=== PATIENT | female | born 1975 | race Caucasian/White ===

== ENCOUNTER 2020-12-07 01:41 | Inpatient (IN) ==
[2020-12-07 01:52] VITALS: BMI 39.6
--- NOTE | 2020-12-07 02:09 | DR.EXTPAIN ---
HPI Time seen Time Seen by Provider: 12/07/20 01:55 PCP Primary Care Physician: YAMILKA MARTÍNEZ Complaint/Symptoms Chief Complaint:: PT HAS LARGE CUT TO BOTTOM OF THIRD LEFT TOE. TOE IS BLUE/PURPLE IN COLOR. PT STATES THAT HER TOE WAS NOT LIKE THIS EARLIER AND THAT SHE NOTICED IT WHENEVER SHE WENT TO TAKE A SHOWER AT AROUND 0115. PT STATES SHE HAS NEUROPATHY IN HER TOES. Source History Provided: Patient Mode of arrival Mode of Arrival: Ambulatory Timing Onset of Chief Complaint: 12/07/20 PMH PMH Past Medical History: Yes Past Medical History: Anxiety, Arthritis, CHF, COPD, Coronary Artery Disease, Diabetes, Migraines, GERD, Headaches, Hypertension, Kidney Stones, [place] and Sleep Apnea Past Medical History Comment: NEUROPATHY Past Surgical History: Yes Surgical History: Appendectomy, , CABG/Valve Surgery and Cholecyste ctomy Past Surgical History Comment: CABG X2 Family History History of Family Medical Conditions: Yes Family Medical History: Diabetes Mellitus and Hypertension Social History Does patient currently use any type of tobacco product: Yes Have you used tobacco products in the last 12 months: Yes Type of Tobacco Use: Cigarettes How many years tobacco product used: 30 Does any household member use tobacco: Yes Alcohol Use: None Do you use any recreational Drugs:: No Lives With: Family Lives Where: Home Infectious screening Have you traveled outside the country in the last 6 months?: No Isolation: Standard ROS Review of Systems Constitutional: No Symptoms Reported and See HPI Eyes: No Symptoms Reported and See HPI ENTM: No Symptoms Reported and See HPI Respiratoy: No Symptoms Reported and See HPI Cardiovascular: No Symptoms Reported and See HPI Gastrointestinal/Abdominal: No Symptoms Reported and See HPI Genitourinary: No Symptoms Reported and See HPI Neurological: No Symptoms Reported and See HPI Musculoskeletal: No Symptoms Reported and See HPI Integumentary: No Symptoms Reported and See HPI Hematologic/Lymphatic: No Symptoms Reported and See HPI Endocrine: No Symptoms Reported and See HPI Psychiatric: No Symptoms Reported and See HPI All Other Systems: Reviewed and Negative PE Vital Signs Vitals: Temperature 98.0 F Pulse Rate [Brachial] 89 Pulse Rate 117 Respiratory Rate 18 Blood Pressure [Left Arm] 151/72 Blood Pressure 190/94 O2 Sat by Pulse Oximetry 98 General Limitations: No Limitations General Appearance: Alert and In No Apparent Distress Head Head Exam: Normal Inspection Eyes Eye exam: Normal Appearance ENT ENT Exam: Normal Exam Neck Neck Exam: Normal Inspection Chest Chest Inspection: Normal Inspection Respiratory Respiratory Exam: Normal Lung Sounds Bilat Cardiovascular Cardiovascular Exam: Regular Rate and Normal Rhythm Abdominal Exam Abdominal Exam: Normal Inspection, Normal Bowel Sounds and Soft Extremities Extremities Exam: Normal Inspection Back Back Exam: Normal Inspection Neurological Neurological Exam: Alert, Oriented X3 and CN II-XII Intact Psychiatric Psychiatric Exam: Normal Affect and Normal Mood Skin Skin Exam: Warm, Dry, Intact and Normal Color ROR Labs Reviewed Result Diagrams: 12/07/20 02:19 12/07/20 02:19 Laboratory: WBC 11.1 X10^3/uL (3.6-10.0) H 12/07/20 02:19 RBC 5.01 X10^6/uL (3.5-5.4) 12/07/20 02:19 Hgb 15.5 g/dL (12.0-16.0) 12/07/20 02:19 Hct 44.0 % (36.0-47.0) 12/07/20 02:19 MCV 87.9 fL (80.0-100.0) 12/07/20 02:19 MCH 30.9 pg (27.0-34.0) 12/07/20 02:19 MCHC 35.2 g/dL (33.0-35.0) H 12/07/20 02:19 RDW 14.3 % (11.6-16.5) 12/07/20 02:19 Plt Count 239 X10^3/uL (150.0-450.0) 12/07/20 02:19 MPV 7.5 fL (7.4-11.0) 12/07/20 02:19 Neut % (Auto) 72.7 % (42.0-75.0) 12/07/20 02:19 Lymph % (Auto) 18.4 % (21.0-51.0) L 12/07/20 02:19 [place] % (Auto) 6.9 % (0.0-13.0) 12/07/20 02:19 Eos % (Auto) 1.1 % (0.9-2.9) 12/07/20 02:19 Baso % (Auto) 0.9 % (0.2-1.0) 12/07/20 02:19 Neut # (Auto) 8.1 x10^3/uL (2.2-4.8) H 12/07/20 02:19 Lymph # (Auto) 2.0 X10^3/uL (1.3-2.9) 12/07/20 02:19 [place] # (Auto) 0.8 x10^3/uL (0.3-0.8) 12/07/20 02:19 Eos # (Auto) 0.1 x10^3/uL (0.0-0.2) 12/07/20 02:19 Baso # (Auto) 0.1 X10^3/uL (0.0-0.1) 12/07/20 02:19 Absolute Nucleated RBC 0.1 /100WBC 12/07/20 02:19 Sodium 137 mmol/L (136-145) 12/07/20 02:19 Corrected Sodium 146 mmol/L (136-145) H 12/07/20 02:19 Potassium 3.5 mmol/L (3.5-5.1) 12/07/20 02:19 Chloride 99 mmol/L (98-107) 12/07/20 02:19 Carbon Dioxide 24.6 mmol/L (21-32) 12/07/20 02:19 BUN 10 mg/dL (7-18) 12/07/20 02:19 Creatinine 0.92 mg/dL (0.55-1.02) 12/07/20 02:19 Est GFR (MDRD) Af Amer > 60 (>60) 12/07/20 02:19 Est GFR (MDRD) Non-Af > 60 (>60) 12/07/20 02:19 Glucose 456 mg/dL (65-99) H 12/07/20 02:19 Calcium 9.1 mg/dL (8.5-10.1) 12/07/20 02:19 Corrected Calcium 9.7 mg/dL (8.5-10.1) 12/07/20 02:19 Total Bilirubin 1.10 mg/dL (0.2-1.0) H 12/07/20 02:19 AST 14 Units/L (15-37) L 12/07/20 02:19 ALT 13 Units/L (12-78) 12/07/20 02:19 Alkaline Phosphatase 174 Units/L (46-116) H 12/07/20 02:19 Total Protein 7.4 g/dL (6.4-8.2) 12/07/20 02:19 Albumin 3.3 g/dL (3.4-5.0) L 12/07/20 02:19 Globulin 4.1 g/dL (2.5-4.5) 12/07/20 02:19 Albumin/Globulin Ratio 0.8 Ratio (1.1-2.1) L 12/07/20 02:19 Acetone, Semi-Quant Negative (NEGATIVE) 12/07/20 02:19 Opioid Opioid Risk Tool Total: 0 Total Score Risk Category: Low Risk Copyright: Garland MONAE predicting aberrant behaviors Instructions Forms: Precautions for COVID19 Patient Portal Social Distancing
[2020-12-07 02:38] LABS: BASOPHILS # (AUTO) 0.1 X10^3/uL (0.0-0.1); BASOPHILS % (AUTO) 0.9 % (0.2-1.0); EOSINOPHILS # (AUTO) 0.1 x10^3/uL (0.0-0.2); EOSINOPHILS % (AUTO) 1.1 % (0.9-2.9); HEMOGLOBIN 15.5 g/dL (12.0-16.0); LYMPHOCYTES % (AUTO) 18.4 % (21.0-51.0); MEAN CORPUSCULAR HEMOGLOBIN 30.9 pg (27.0-34.0); MEAN CORPUSCULAR HGB CONC 35.2 g/dL (33.0-35.0); MEAN CORPUSCULAR VOLUME 87.9 fL (80.0-100.0); MEAN PLATELET VOLUME 7.5 fL (7.4-11.0); MONOCYTES # (AUTO) 0.8 x10^3/uL (0.3-0.8); MONOCYTES % (AUTO) 6.9 % (0.0-13.0); NEUTROPHILS # (AUTO) 8.1 x10^3/uL (2.2-4.8); NEUTROPHILS % (AUTO) 72.7 % (42.0-75.0); PLATELET COUNT 239 X10^3/uL (150.0-450.0); RED BLOOD COUNT 5.01 X10^6/uL (3.5-5.4); RED CELL DISTRIBUTION WIDTH 14.3 % (11.6-16.5); WHITE BLOOD COUNT 11.1 X10^3/uL (3.6-10.0)
[2020-12-07 02:47] LABS: ALANINE AMINOTRANSFERASE 13 Units/L (12-78); ALBUMIN 3.3 g/dL (3.4-5.0); ALKALINE PHOSPHATASE 174 Units/L (46-116); ASPARTATE AMINO TRANSFERASE 14 Units/L (15-37); BLOOD UREA NITROGEN 10 mg/dL (7-18); CALCIUM 9.1 mg/dL (8.5-10.1); CARBON DIOXIDE 24.6 mmol/L (21-32); CHLORIDE 99 mmol/L (98-107); COR CA(FOR HYPOALB) 9.7 mg/dL (8.5-10.1); COR NA(FOR HYPERGLY) 146 mmol/L (136-145); CREATININE 0.92 mg/dL (0.55-1.02); SODIUM 137 mmol/L (136-145); TOTAL PROTEIN 7.4 g/dL (6.4-8.2); eGFR NON BLACK RACES > 60 (>60)
[2020-12-07] MEDS ORDERED: NS 1000 ML 1,000 ML ONE ×2 (02:59→06:16)
[2020-12-07] MEDS ORDERED: NS 1000 ML 1,000 ML IV ONE ×2 (03:11→06:12)
[2020-12-07] MEDS ORDERED: VANCOMYCIN IV *PREMIX 1 G/200 ML BAG 1 G/200 ML PIGGYBACK IV ONE ×2 (06:12→06:16)
[2020-12-07] MEDS ORDERED: HumuLIN R SUBCUT ONE (06:13)
[2020-12-07] MEDS ORDERED: HumuLIN R ONE (06:17)
--- NOTE | 2020-12-07 06:26 | RAD ---
HISTORYLaceration 3rd digitSTUDYLeft foot three viewsCOMPARISONNoneFINDINGSThere is no evidence for acute bone or acute joint abnormality. No fracture, lytic, or blastic lesion is identified. No erosive arthritis or soft tissue abnormalities identified. No radiopaque soft tissue foreign bodies are identified. The tarsal bones are intact and normally aligned. The Lisfranc joint is intact. The 3rd digit is intact.IMPRESSIONNo significant abnormality identifiedElectronically signed by: ELIANE CALI (Dec 07, 2020 06:25:20)
[2020-12-07] MEDS ORDERED: PHARMACY CONSULT - VANCOMYCIN XX SCH (07:00)
[2020-12-07] MEDS ORDERED: ZOFRAN TAB 4 MG PO PRN (07:23)
[2020-12-07] MEDS ORDERED: D5 LR 1000 ML 1,000 ML IV SCH (07:23)
[2020-12-07] MEDS ORDERED: VANCOMYCIN IV *PREMIX 1 G/200 ML BAG 1 G/200 ML PIGGYBACK IV SCH ×2 (08:00→21:00)
[2020-12-07] MEDS: VANCOMYCIN IV *PREMIX 1.25 G/250 ML BAG 1.25 G/250 ML PIGGYBACK IV SCH ×2 (08:20→21:04)
[2020-12-07] MEDS: MORPHINE SULFATE INJ 4 MG IVP PRN ×3 (08:32→21:29)
[2020-12-07] MEDS: NS 1000 ML 1,000 ML IV SCH ×3 (10:22→18:38)
[2020-12-07] MEDS: ZOSYN VIAL 3.375 GRAMS 3.375 G in NS 100 ML IV + SPIKE MINIBAG* 100 ML IV SCH ×3 (10:36→21:05)
[2020-12-07] MEDS: INVOKANA PO SCH (10:36)
[2020-12-07] MEDS: COZAAR PO SCH (10:37)
[2020-12-07] MEDS: COREG TAB 12.5 MG PO SCH ×2 (10:37→21:03)
[2020-12-07] MEDS: GLUCOPHAGE XR 24-HR PO SCH ×2 (10:38→21:04)
[2020-12-07] MEDS: VICTOZA SC SCH (11:22)
[2020-12-07] MEDS: HumuLIN R SC PRN ×2 (11:37→17:28)
--- NOTE | 2020-12-07 14:09 | DR.CONSULT ---
CONSULT Consultation for Day of: Date: 12/07/20 Chief Complaint Chief Complaint: 3rd toe infection left foot Allergies Allergies Allergy/AdvReac Type Severity Reaction Status Date / Time atorvastatin [From Lipitor] Allergy Verified 04/26/20 03:14 meloxicam [From Mobic] Allergy Verified 04/26/20 03:14 History of Present Illness History of Present Illness: Pt is a 45F DM2 who reports worsening left 3rd digit. states that she didnt notice any changes until 2 days ago. Denies n/v/f/c/sob and NAD and AAO x 3. She hasn't taken any abx or sought treat ment for this issue anywhere else. She also states that she has never had any type of foot issues, nor has she ever been seen by a slag motor operator. Past Medical History Past Medical History: Anxiety, Arthritis, CHF, COPD, Coronary Artery Disease, Diabetes, Migraines, GERD, Headaches, Hypertension, Kidney Stones, [place] and Sleep Apnea Past Surgical History Surgical History: , CABG/Valve Surgery, Cholecystectomy and Ortho Surgery Family History Family Medical History: Diabetes Mellitus and Hypertension Social History Does patient currently use any type of tobacco product: Yes Have you used tobacco products in the last 12 months: Yes Type of Tobacco Use: Cigarettes How many years tobacco product used: 30 Does any household member use tobacco: Yes Alcohol Use: None Drug Use: None Medications Home Medications: atorvastatin [From Lipitor] Allergy (Verified 04/26/20 03:14) meloxicam [From Mobic] Allergy (Verified 04/26/20 03:14) CONTINUE taking the following medications carvedilol 6.25 mg PO BID 12/07/20 [History] cyclobenzaprine 10 mg PO TID PRN 12/07/20 [History] escitalopram oxalate 20 mg PO DAILY 12/07/20 [History] folic acid 1 mg PO DAILY 12/07/20 [History] furosemide [Lasix] 20 mg PO QAM 12/07/20 [History] gabapentin 600 mg PO BID 12/07/20 [History] ivermectin 18 mg PO WEEKLY 12/07/20 [History] lisinopril 5 mg PO DAILY 12/07/20 [History] loratadine 10 mg PO HS 12/07/20 [History] metformin 1,000 mg PO BID 12/07/20 [History] rosuvastatin 20 mg PO HS 12/07/20 [History] Review of Systems Constitutional: No Symptoms Reported Physical Exam Vital Signs: Temperature 97.9 F Pulse Rate [Brachial] 84 Pulse Rate 117 Respiratory Rate 20 Blood Pressure [Left Arm] 112/61 Blood Pressure 190/94 O2 Sat by Pulse Oximetry 98 Plan Plan: Objective: - DP/PT pulses 1/4 b/l - sensation: gross sensation in tact but diminished fine epicritic sensation at the level of the digits - lateral aspect 3rd toe has ulceration w/ exposed sub-q layer--> does not probe to bone - malodorous, scant purulent drainage w/ CSOI at this time Assessment: - 45F w/ left 3rd toe w/ ischemic changes and likely abscess formation and possible OM Plan: - c/w IV abc - MRI w/o contrast left foot --> OM vs abscess - arterial doppler - dress w/ betadine soaked gauze and cling. Do not apply DEBORAH or any other compressive dressing - will go to OR this week for amputation left 3rd toe --> plan discussed w/ pt a nd she is amendable
--- NOTE | 2020-12-07 16:34 | MRI ---
HISTORYCELLULITIS/ GANGRENE LEFT FOOTSTUDYEXT LOWER NON-JOINT W/O CONCOMPARISONLeft foot radiographs, December 07, 2020TECHNIQUEMRI of the left foot were obtained without the administration of IV contrast utilizing a routine protocol.FINDINGSNo abnormal T1 or T2 signal in the osseous structures.No fracture identified.Soft tissues appear grossly normal; correlate with the patient's clinical history for the site of the known laceration described on radiograph history from December 07, 2020.Intrinsic muscles and tendons within the foot appear grossly normal.Lisfranc ligament appear intact.IMPRESSIONNo evidence of a fracture or osteomyelitis. Soft tissues appear grossly normal; correlate with the patient's clinical history for the site of the known laceration described on radiograph history from December 07, 2020.Electronically signed by: Sandip Saleem (Dec 07, 2020 16:32:52)
--- NOTE | 2020-12-07 18:12 | VAS ---
HISTORYGANGRENE TO LT FOOT 3 TOESTUDYLOWER EXT ARTERIALCOMPARISONNo relevant prior studies available.[id number] static color Doppler/vascular waveform images were reviewed.FINDINGSRight lower extremity:Triphasic waveform in the AGRONOMY SPECIALIST with a peak systolic velocity 132.8 cm/second.Triphasic waveform in the proximal SFA with a peak systolic velocity of 103.9 cm/second.Triphasic waveform in the mid SFA with a peak systolic velocity of 389.1 cm/second.Triphasic waveform in the distal popliteal artery with a peak systolic velocity of 42.2 cm/second.Biphasic waveform in the distal THEATRICAL TROUPER with a peak systolic velocity of 19.9 cm/second.Monophasic waveform in the DPA with a peak systolic velocity of 0.64 cm/second.Biphasic waveform in the AKI with a peak systolic velocity of 17.9 cm/second.Biphasic waveform in the peroneal artery with a peak systolic velocity of 27.8 cm/second.Left lower extremity:Biphasic waveform in the AGRONOMY SPECIALIST with a peak systolic velocity of 15.0 cm/second.Proximal/mid SFA were unable to be visualized.Peak systolic velocity in the distal SFA 45.8 cm/second.Monophasic waveform in the distal popliteal artery with a peak systolic velocity of 28.1 cm/second.Monophasic waveform in the distal THEATRICAL TROUPER with a peak systolic velocity of 27.6 cm/second.Monophasic waveform in the DPA with a peak systolic velocity of 6.7 cm/second.Monophasic waveform in the AKI with a peak systolic velocity of 24.6 cm/second.Monophasic waveform in the peroneal artery with a peak systolic velocity of 9.7 cm/second.IMPRESSIONModerate-severe right and severe left peripheral vascular disease. Diminished arterial waveforms; particularly in the distal left lower extremity.Electronically signed by: Sandip Saleem (Dec 07, 2020 18:10:05)
[2020-12-07] MEDS ORDERED: VANCOMYCIN HCL 750 MG VIAL 750 MG in D5W 250 ML IV 250 ML IV SCH (21:00)
[2020-12-07] MEDS: BETADINE SOLN TOP SCH (21:05)
[2020-12-08] MEDS: MORPHINE SULFATE INJ 4 MG IVP PRN ×3 (04:16→21:15)
[2020-12-08] MEDS: NS 1000 ML 1,000 ML IV SCH ×5 (05:18→22:38)
[2020-12-08] MEDS: ZOSYN VIAL 3.375 GRAMS 3.375 G in NS 100 ML IV + SPIKE MINIBAG* 100 ML IV SCH ×3 (05:19→22:39)
[2020-12-08 05:57] LABS: BASOPHILS # (AUTO) 0.1 X10^3/uL (0.0-0.1); BASOPHILS % (AUTO) 0.7 % (0.2-1.0); EOSINOPHILS # (AUTO) 0.2 x10^3/uL (0.0-0.2); EOSINOPHILS % (AUTO) 1.8 % (0.9-2.9); HEMATOCRIT 40.2 % (36.0-47.0); HEMOGLOBIN 14.1 g/dL (12.0-16.0); LYMPHOCYTES % (AUTO) 22.1 % (21.0-51.0); MEAN CORPUSCULAR HEMOGLOBIN 30.7 pg (27.0-34.0); MEAN CORPUSCULAR HGB CONC 35.2 g/dL (33.0-35.0); MEAN CORPUSCULAR VOLUME 87.3 fL (80.0-100.0); MEAN PLATELET VOLUME 7.7 fL (7.4-11.0); MONOCYTES # (AUTO) 0.6 x10^3/uL (0.3-0.8); MONOCYTES % (AUTO) 7.1 % (0.0-13.0); NEUTROPHILS # (AUTO) 6.2 x10^3/uL (2.2-4.8); NEUTROPHILS % (AUTO) 68.3 % (42.0-75.0); PLATELET COUNT 232 X10^3/uL (150.0-450.0); RED BLOOD COUNT 4.61 X10^6/uL (3.5-5.4)
[2020-12-08 06:11] LABS: ALANINE AMINOTRANSFERASE 14 Units/L (12-78); ALBUMIN 2.8 g/dL (3.4-5.0); ALKALINE PHOSPHATASE 173 Units/L (46-116); ASPARTATE AMINO TRANSFERASE 17 Units/L (15-37); BLOOD UREA NITROGEN 10 mg/dL (7-18); CALCIUM 8.1 mg/dL (8.5-10.1); CARBON DIOXIDE 26.3 mmol/L (21-32); CHLORIDE 105 mmol/L (98-107); COR CA(FOR HYPOALB) 9.1 mg/dL (8.5-10.1); COR NA(FOR HYPERGLY) 142 mmol/L (136-145); CREATININE 0.62 mg/dL (0.55-1.02); SODIUM 141 mmol/L (136-145); TOTAL PROTEIN 6.6 g/dL (6.4-8.2); eGFR NON BLACK RACES > 60 (>60)
[2020-12-08] MEDS: GLUCOPHAGE XR 24-HR PO SCH (08:58)
[2020-12-08] MEDS: INVOKANA PO SCH (08:58)
[2020-12-08] MEDS: COZAAR PO SCH (08:58)
[2020-12-08] MEDS: COREG TAB 12.5 MG PO SCH ×2 (08:58→21:15)
[2020-12-08] MEDS: VICTOZA SC SCH (09:00)
[2020-12-08] MEDS ORDERED: VANCOMYCIN IV *PREMIX 1.75 G/350 ML BAG 1.75 G/350 ML PIGGYBACK IV SCH (09:00)
[2020-12-08] MEDS: BETADINE SOLN TOP SCH (09:00)
[2020-12-08] MEDS: VANCOMYCIN IV *PREMIX 1.25 G/250 ML BAG 1.25 G/250 ML PIGGYBACK IV SCH ×2 (09:00→21:59)
[2020-12-08] MEDS: LOVENOX INJ 40 MG SYR SC SCH (11:17)
[2020-12-08] MEDS ORDERED: NS 100 ML IV 100 ML ONE (14:20)
--- NOTE | 2020-12-08 14:54 | NOTE.SOAP ---
Soap Note Note for Day of Date of Exam: 12/08/20 Subjective Data Subjective Data: Ms. Marshall was seen today at bedside. Reports that she is having pain throughout the LLE, for which elevation, nor maintaining the limb in a dependent position helps alleviate. Denies n/v/f/c/sob and NAD and AAO x 3. States that she has not ambulated since admission in order to not bear any weight on her LLE. Objective Data Objective Data: - Betadine soaked gauze dressing on left 3rd digit, w/ no strikethrough. Malodor was notes and there was no purulent draiange --> CSOI - left 3rd digit appears dysvascular and there is a wound to the lateral aspect of base of 3rd digit --> moderate edematous/erythematous changes which are proximal to DIPJ - cap fill time to all 5 digits LLE is delayed and temperature gradient is war to cool, proximal to distal - Negative Hohmans sign Assessment Assessment: - 45F DM2 and PVD w/ infected left 3rd digit abscess w/ possible underlying OM Plan Plan: - Discussion regarding MRI and arterial doppler findings --> explained that she has monophasic waveforms throughout the LLE, indicative of severe PVD and her pain is likely ischemic in nature - OR tomorrow for left 3rd toe amp --> pt consented and placed in chart - Spoke w/ who reviewed initial doppler studies and will order CTA and discuss vascular intervention w/ Ms. Marshall - c/w IV abx - NPO @ midnight
--- NOTE | 2020-12-08 17:09 | CT ---
HISTORYISCHEMIC LEFT TOE DIABETIC ULCERSTUDYCTA AORTA WITH RUNOFFCOMPARISONNone available.TECHNIQUEAxial CT images of the abdomen, pelvis and lower extremities were obtained prior to and after the administration of IV contrast; during the arterial phase. Images were reformatted with MIPS and 3D angiographic technique for further evaluation.Radiation dose: 4125.90 mGy-cm total DLPFINDINGSAorta: Atherosclerotic changes with no aneurysm. No clinically significant stenosis or occlusion.Mesenteric arteries/Celiac trunk: No clinically significant stenosis, occlusion or aneurysm.Renal arteries: No clinically significant stenosis, occlusion or aneurysm.Right iliac arteries: Atherosclerotic changes. No clinically significant stenosis, occlusion or aneurysm.Left iliac arteries: Atherosclerotic changes. No clinically significant stenosis, occlusion or aneurysm.Right femoral arteries/popliteal artery: Atherosclerotic changes. No clinically significant stenosis, occlusion or aneurysm.Left femoral arteries/popliteal artery: Atherosclerotic changes. Occlusion of the mid to distal SFA with reconstitution at the adductor hiatus.Right infrapopliteal arteries: No occlusion or aneurysm. Normal 3 vessel runoff.Left infrapopliteal arteries: No occlusion or aneurysm. Normal 3 vessel runoff.Atelectasis in the posterior lung bases.No acute osseous abnormality.Stomach and proximal small bowel appear normal.Diffuse fatty infiltration of the liver.Decreased attenuation in the posterior right hepatic portal vein is concerning for thrombosis.Status post cholecystectomy.No biliary dilatation.Homogeneous enhancement of the kidneys without hydronephrosis or hydroureter.No urinary calculus identified.Urinary bladder is unremarkable.Unremarkable appearance of the small and large bowel.Status post appendectomy.Reproductive structures are unremarkable.No pneumoperitoneum.No free intra-abdominal fluid.No adenopathy.No soft tissue gas.IMPRESSION1. Decreased attenuation in the posterior right hepatic portal vein is concerning for thrombosis. Otherwise, no acute intra-abdominal abnormality detected.2. Atherosclerotic changes to the abdominal aorta, iliac vessels, common femoral arteries, femoral arteries and popliteal arteries bilaterally. Occlusion of the mid to distal left SFA with reconstitution at the adductor hiatus. Normal and symmetric three-vessel runoffs bilaterally.3. Diffuse fatty infiltration of the liver.Electronically signed by: Sandip Saleem (Dec 08, 2020 17:07:45)
[2020-12-08] MEDS ORDERED: PHARMACY COMMENT IV NR (20:30)
[2020-12-08 21:44] LABS: CREATININE 0.56 mg/dL (0.55-1.02); VANCOMYCIN,TROUGH 7.4 ug/mL (15-20)
[2020-12-09] MEDS: ZOSYN VIAL 3.375 GRAMS 3.375 G in NS 100 ML IV + SPIKE MINIBAG* 100 ML IV SCH ×3 (05:31→23:27)
[2020-12-09] MEDS: NS 1000 ML 1,000 ML IV SCH ×3 (06:24→23:27)
[2020-12-09] MEDS ORDERED: D50W ABBOJECT SYR ONE (06:24)
[2020-12-09] MEDS: MORPHINE SULFATE INJ 4 MG IVP PRN ×3 (06:35→21:50)
[2020-12-09] MEDS: COZAAR PO SCH (08:34)
[2020-12-09] MEDS: COREG TAB 12.5 MG PO SCH ×2 (08:34→21:54)
[2020-12-09] MEDS ORDERED: ANCEF 1 GRAM IV PREMIX* 2 G/100 ML BAG IV ONE (09:19)
--- NOTE | 2020-12-09 09:25 | DR.CONSULT ---
CONSULT Consultation for Day of: Date: 12/08/20 Chief Complaint Chief Complaint: Gangrenous toe left 3rd toe Allergies Allergies Allergy/AdvReac Type Severity Reaction Status Date / Time atorvastatin [From Lipitor] Allergy Verified 04/26/20 03:14 meloxicam [From Mobic] Allergy Verified 04/26/20 03:14 History of Present Illness History of Present Illness: 45-year-old female with history of significant tobacco abuse, diabetes, coronary disease status post CABG times 2with recent injury to the left 3rd toe which is now dark and gangrenous. Patient currently on IV antibiotics. Podiatry was consulted and they are planning amputation of the left 3rd toe. Duplex imaging shows monophasic flow distally on the left leg as well as marked increase in velocity of the right superficial artery . CT angiogram shows complete occlusion of the midportion of the left superficial femoral artery with reconstitution of the popliteal artery and trifurcation vessels on the left. There is diffuse disease noted on the CT angiogram of the right leg above the knee however with the increased velocity of almost 400 cm/ sec, I suspect there is a significant stenosis here as well. Patient has had recent stress test reported as normal. Past Medical History Past Medical History: Anxiety, Arthritis, CHF, COPD, Coronary Artery Disease, Diabetes, Migraines, GERD, Headaches, Hypertension, Kidney Stones, [place] and Sleep Apnea Past Surgical History Surgical History: , CABG/Valve Surgery, Cholecystectomy and Ortho Surgery Additional Surgical History: appendectomy, Family History Family Medical History: Diabetes Mellitus and Hypertension Social History Does patient currently use any type of tobacco product: Yes Have you used tobacco products in the last 12 months: Yes Type of Tobacco Use: Cigarettes How many years tobacco product used: 30 Does any household member use tobacco: Yes Alcohol Use: None Drug Use: None Medications Home Medications: atorvastatin [From Lipitor] Allergy (Verified 04/26/20 03:14) meloxicam [From Mobic] Allergy (Verified 04/26/20 03:14) CONTINUE taking the following medications carvedilol 6.25 mg PO BID 12/07/20 [History] cyclobenzaprine 10 mg PO TID PRN 12/07/20 [History] escitalopram oxalate 20 mg PO DAILY 12/07/20 [History] folic acid 1 mg PO DAILY 12/07/20 [History] furosemide [Lasix] 20 mg PO QAM 12/07/20 [History] gabapentin 600 mg PO BID 12/07/20 [History] ivermectin 18 mg PO WEEKLY 12/07/20 [History] lisinopril 5 mg PO DAILY 12/07/20 [History] loratadine 10 mg PO HS 12/07/20 [History] metformin 1,000 mg PO BID 12/07/20 [History] rosuvastatin 20 mg PO HS 12/07/20 [History] Review of Systems Respiratory: No Symptoms Reported Cardiovascular: No Symptoms Reported Musculoskeletal: Other (painful walking left foot , claudicaTION both legs.) Skin: Wound (wound left 3rd toe) Neurological: No Symptoms Reported Physical Exam Vital Signs: Temperature 97.6 F Pulse Rate [Brachial] 81 Pulse Rate 103 Respiratory Rate 18 Blood Pressure [Left Arm] 100/56 Blood Pressure 190/94 O2 Sat by Pulse Oximetry 98 Oriented: Normal, Time, Person and Place Eyes: Normal Ear: Normal Nose: Normal Throat: Normal Respiratory: Clear Throughout Cardiovascular: Normal and Other (Weakly palpable femoral pulses bilaterally.Absent pules distally both ankles.) : Normal Auscultation: Bowel Sounds: Normal Palpation: Normal Tenderness: Normal Skin: Wound (gangrenous let 3rd toe) Musculoskeletal: Normal Psychiatric: Normal Mood Description: Calm Plan Plan: Patient with significant risk factors for and now has significant bilateral peripheral vascular disease with tissue loss on the left leg with complete occlusion of the left superficial femoral artery and most likely severe stenosis of the right superficial femoral artery . Acupuncture Physician planning amputation of the left 3rd toe today. I will plan revascularization with probable atherectomy and drug-coated balloon angioplasty tomorrow of the left superficial femoral artery . Will probably need to stage intervention the right leg in the future as well. Encourage her to stop smoking. Control diabetes.
[2020-12-09] MEDS ORDERED: FENTANYL INJ 100 mcg ONE (10:32)
[2020-12-09] MEDS ORDERED: MARCAINE 0.25% INJ ONE (10:57)
[2020-12-09] MEDS ORDERED: VERSED ONE (11:05)
[2020-12-09] MEDS ORDERED: DIPRIVAN VIAL ONE (11:05)
[2020-12-09] MEDS ORDERED: XYLOCAINE 1 % (PLAIN) ONE (11:05)
[2020-12-09] MEDS ORDERED: BETADINE SOLN ONE (11:21)
[2020-12-09] MEDS ORDERED: DUONEB 0.5 MG/3 MG (3 mL) NEB ONE ×2 (11:53→14:56)
[2020-12-09] MEDS: VANCOMYCIN IV *PREMIX 1.25 G/250 ML BAG 1.25 G/250 ML PIGGYBACK IV SCH ×4 (12:10→21:54)
[2020-12-09] MEDS: INVOKANA PO SCH (12:11)
[2020-12-09] MEDS: LOVENOX INJ 40 MG SYR SC SCH (12:23)
[2020-12-09] MEDS ORDERED: NS IRRIGATION* 500 ML IR ONE (12:35)
[2020-12-09] MEDS: BETADINE SOLN TOP SCH (12:45)
[2020-12-09] MEDS: VICTOZA SC SCH (12:45)
[2020-12-10] MEDS: NS 1000 ML 1,000 ML IV SCH ×3 (02:35→16:00)
[2020-12-10] MEDS: MORPHINE SULFATE INJ 4 MG IVP PRN ×4 (05:24→20:55)
[2020-12-10] MEDS ORDERED: PHARMACY COMMENT IV NR (05:30)
[2020-12-10 06:25] LABS: BASOPHILS # (AUTO) 0.1 X10^3/uL (0.0-0.1); BASOPHILS % (AUTO) 0.6 % (0.2-1.0); EOSINOPHILS # (AUTO) 0.1 x10^3/uL (0.0-0.2); EOSINOPHILS % (AUTO) 1.5 % (0.9-2.9); HEMATOCRIT 37.7 % (36.0-47.0); LYMPHOCYTES # (AUTO) 1.6 X10^3/uL (1.3-2.9); LYMPHOCYTES % (AUTO) 18.3 % (21.0-51.0); MEAN CORPUSCULAR HEMOGLOBIN 30.3 pg (27.0-34.0); MEAN CORPUSCULAR HGB CONC 34.4 g/dL (33.0-35.0); MEAN CORPUSCULAR VOLUME 88.2 fL (80.0-100.0); MONOCYTES # (AUTO) 0.6 x10^3/uL (0.3-0.8); MONOCYTES % (AUTO) 6.4 % (0.0-13.0); NEUTROPHILS # (AUTO) 6.5 x10^3/uL (2.2-4.8); NEUTROPHILS % (AUTO) 73.2 % (42.0-75.0); PLATELET COUNT 278 X10^3/uL (150.0-450.0); RED BLOOD COUNT 4.28 X10^6/uL (3.5-5.4); RED CELL DISTRIBUTION WIDTH 14.2 % (11.6-16.5); WHITE BLOOD COUNT 8.9 X10^3/uL (3.6-10.0)
[2020-12-10 06:40] LABS: ALANINE AMINOTRANSFERASE 13 Units/L (12-78); ALBUMIN 2.4 g/dL (3.4-5.0); ALKALINE PHOSPHATASE 156 Units/L (46-116); ASPARTATE AMINO TRANSFERASE 19 Units/L (15-37); BLOOD UREA NITROGEN 14 mg/dL (7-18); CALCIUM 7.9 mg/dL (8.5-10.1); CARBON DIOXIDE 16.4 mmol/L (21-32); CHLORIDE 110 mmol/L (98-107); COR CA(FOR HYPOALB) 9.2 mg/dL (8.5-10.1); COR NA(FOR HYPERGLY) 143 mmol/L (136-145); CREATININE 0.76 mg/dL (0.55-1.02); SODIUM 141 mmol/L (136-145); TOTAL PROTEIN 6.2 g/dL (6.4-8.2); eGFR NON BLACK RACES > 60 (>60)
[2020-12-10 06:50] LABS: CREATININE 0.73 mg/dL (0.55-1.02); VANCOMYCIN,TROUGH 13.6 ug/mL (15-20)
[2020-12-10] MEDS: VANCOMYCIN IV *PREMIX 1.25 G/250 ML BAG 1.25 G/250 ML PIGGYBACK IV SCH ×3 (07:10→21:30)
[2020-12-10] MEDS: ZOSYN VIAL 3.375 GRAMS 3.375 G in NS 100 ML IV + SPIKE MINIBAG* 100 ML IV SCH ×3 (08:30→22:51)
[2020-12-10] MEDS: COZAAR PO SCH (08:58)
[2020-12-10] MEDS: COREG TAB 12.5 MG PO SCH ×2 (08:58→20:32)
[2020-12-10] MEDS: LOVENOX INJ 40 MG SYR SC SCH (09:10)
[2020-12-10] MEDS ORDERED: DUONEB 0.5 MG/3 MG (3 mL) NEB ONE (10:17)
[2020-12-10] MEDS: INVOKANA PO SCH (11:01)
[2020-12-10] MEDS: VICTOZA SC SCH (11:04)
[2020-12-10] MEDS ORDERED: NS 1000 ML 1,000 ML ONE (11:22)
[2020-12-10] MEDS ORDERED: ANCEF 1 GRAM IV PREMIX* 2 G/100 ML BAG IV ONE (11:23)
[2020-12-10] MEDS ORDERED: HEPARIN SODIUM INJ 5000 UNITS ONE (11:39)
[2020-12-10] MEDS ORDERED: MARCAINE/EPINEPHRINE ONE (11:39)
[2020-12-10] MEDS ORDERED: HEPARIN SODIUM IN D5W 75,000 UNITS/1,500 ML BAG IV ONE (11:40)
[2020-12-10] MEDS ORDERED: FENTANYL INJ 100 mcg ONE ×2 (11:58→13:44)
[2020-12-10] MEDS ORDERED: KETALAR ONE (12:04)
[2020-12-10] MEDS ORDERED: DIPRIVAN VIAL ONE (12:04)
[2020-12-10] MEDS ORDERED: VERSED ONE (12:04)
[2020-12-10] MEDS ORDERED: DIPRIVAN VIAL 40 ML ONE (13:33)
--- NOTE | 2020-12-10 14:15 | OR.IMMED ---
IMMEDIATE POST-OP NOTE Immediate Post-Op Note Pre-Op Diagnosis: Gangrenous left 3rd toe with BRAND DIRECTOR of left SFA Post-Op Diagnosis: Same , plus sever stenosis of left AT in 2 locations Procedure: aortogram, arteriogram right leg , angioplasty left AT, atherectomy and DCB of left SFA BRAND DIRECTOR, arteriogram right SFA Description of Procedure: See operative summary Surgeon/Motion Graphics Artist: Aleksandra Findings: As above Specimens Removed: none Estimated Blood Loss: 50 cc Drains: NONE Complications: none Progress Notes: To PACU , return to floor. Needs additional IV antibiotics. Discharge Progress Notes: as above Condition: Stable Final Diagnosis: Severely ischemic left leg with gangrene of left 3rd toe.
--- NOTE | 2020-12-10 18:25 | MD.NOTE ---
Provider Note Note Note: - Pt going to OR tomorrow for delayed primary closure of left 3rd digit - NPO at midnight
[2020-12-11] MEDS: MORPHINE SULFATE INJ 4 MG IVP PRN ×5 (02:43→23:43)
[2020-12-11] MEDS: ZOSYN VIAL 3.375 GRAMS 3.375 G in NS 100 ML IV + SPIKE MINIBAG* 100 ML IV SCH ×3 (05:30→22:52)
[2020-12-11 07:07] LABS: CREATININE 0.63 mg/dL (0.55-1.02); VANCOMYCIN,TROUGH 16.4 ug/mL (15-20)
[2020-12-11] MEDS: VANCOMYCIN IV *PREMIX 1.25 G/250 ML BAG 1.25 G/250 ML PIGGYBACK IV SCH ×3 (08:00→21:13)
[2020-12-11] MEDS: NS 1000 ML 1,000 ML IV SCH ×2 (08:00→15:31)
[2020-12-11] MEDS: VICTOZA SC SCH (10:23)
[2020-12-11] MEDS: COZAAR PO SCH ×2 (10:23→14:57)
[2020-12-11] MEDS: INVOKANA PO SCH ×2 (10:23→14:57)
[2020-12-11] MEDS: BETADINE SOLN TOP SCH (10:24)
[2020-12-11] MEDS: COREG TAB 12.5 MG PO SCH ×2 (10:24→20:31)
--- NOTE | 2020-12-11 10:32 | NOTE.SOAP ---
Soap Note Note for Day of Date of Exam: 12/11/20 Subjective Data Subjective Data: Patient not examined by me this date.Discussed with of [facility] . S/P left 3rd toe ray amputation by them 2 days ago and revascularization of left leg with resolution of V BELT FINISHER of left SFA with athrectomy and DCB angioplasty .Doppler showed significant increase in velocity of right SFA which was not mentioned on the CTA. On table arteriogram done of the right leg showing very short segment near complete occlusion of the mid right SFA. To undergo closure of left 3rd toe amputation site today by [facility]. Objective Data Temperature: 98.4 F Pulse Rate: 83 Respiratory Rate: 20 Blood Pressure: 121/61 O2 Sat by Pulse Oximetry: 96 Assessment Assessment: S/P left SFA athrectomy and DCB angioplasty yesterday. Doing well . Has known severe stenosis of the right mid SFA. Will remain over the weekend after closure of left 3rd toe amputation site today , on IV antibiotics and will plan intervention of right leg on Monday. Plan Plan: as above.
[2020-12-11] MEDS: LOVENOX INJ 40 MG SYR SC SCH (11:02)
[2020-12-11] MEDS ORDERED: NS 1000 ML 1,000 ML ONE (11:23)
[2020-12-11] MEDS ORDERED: BETADINE SOLN ONE (13:19)
[2020-12-11] MEDS ORDERED: MARCAINE 0.25% INJ ONE (13:19)
[2020-12-11] MEDS ORDERED: FENTANYL INJ 100 mcg ONE (13:43)
[2020-12-11] MEDS ORDERED: VERSED ONE (13:56)
[2020-12-11] MEDS ORDERED: KETALAR ONE (13:56)
[2020-12-11] MEDS ORDERED: DIPRIVAN VIAL ONE (13:56)
[2020-12-11] MEDS ORDERED: LEXAPRO ONE (16:41)
[2020-12-11] MEDS: LEXAPRO PO SCH (16:44)
[2020-12-11] MEDS: HumuLIN R SC PRN ×2 (16:53→20:31)
[2020-12-12] MEDS: MORPHINE SULFATE INJ 4 MG IVP PRN (03:35)
[2020-12-12] MEDS: ZOSYN VIAL 3.375 GRAMS 3.375 G in NS 100 ML IV + SPIKE MINIBAG* 100 ML IV SCH ×3 (05:59→22:03)
[2020-12-12 06:34] LABS: BASOPHILS # (AUTO) 0.1 X10^3/uL (0.0-0.1); BASOPHILS % (AUTO) 0.5 % (0.2-1.0); EOSINOPHILS # (AUTO) 0.2 x10^3/uL (0.0-0.2); EOSINOPHILS % (AUTO) 1.8 % (0.9-2.9); HEMATOCRIT 34.7 % (36.0-47.0); LYMPHOCYTES % (AUTO) 18.2 % (21.0-51.0); MEAN CORPUSCULAR HEMOGLOBIN 30.4 pg (27.0-34.0); MEAN CORPUSCULAR HGB CONC 34.6 g/dL (33.0-35.0); MEAN CORPUSCULAR VOLUME 87.8 fL (80.0-100.0); MEAN PLATELET VOLUME 6.9 fL (7.4-11.0); MONOCYTES # (AUTO) 1.1 x10^3/uL (0.3-0.8); MONOCYTES % (AUTO) 9.5 % (0.0-13.0); NEUTROPHILS # (AUTO) 7.8 x10^3/uL (2.2-4.8); PLATELET COUNT 318 X10^3/uL (150.0-450.0); RED BLOOD COUNT 3.95 X10^6/uL (3.5-5.4); RED CELL DISTRIBUTION WIDTH 14.3 % (11.6-16.5); WHITE BLOOD COUNT 11.2 X10^3/uL (3.6-10.0)
[2020-12-12 06:45] LABS: ALANINE AMINOTRANSFERASE 10 Units/L (12-78); ALBUMIN 2.5 g/dL (3.4-5.0); ALKALINE PHOSPHATASE 169 Units/L (46-116); ASPARTATE AMINO TRANSFERASE 14 Units/L (15-37); BLOOD UREA NITROGEN 11 mg/dL (7-18); CARBON DIOXIDE 16.1 mmol/L (21-32); CHLORIDE 106 mmol/L (98-107); COR CA(FOR HYPOALB) 9.2 mg/dL (8.5-10.1); COR NA(FOR HYPERGLY) 140 mmol/L (136-145); CREATININE 0.56 mg/dL (0.55-1.02); SODIUM 139 mmol/L (136-145); TOTAL PROTEIN 6.3 g/dL (6.4-8.2); eGFR NON BLACK RACES > 60 (>60)
[2020-12-12 06:49] LABS: VANCOMYCIN,TROUGH 15.6 ug/mL (15-20)
[2020-12-12] MEDS ORDERED: LEXAPRO ONE (08:36)
[2020-12-12] MEDS: VANCOMYCIN IV *PREMIX 1.25 G/250 ML BAG 1.25 G/250 ML PIGGYBACK IV SCH ×3 (08:39→21:42)
[2020-12-12] MEDS: VICTOZA SC SCH (08:40)
[2020-12-12] MEDS: LOVENOX INJ 40 MG SYR SC SCH (08:40)
[2020-12-12] MEDS: INVOKANA PO SCH (08:41)
[2020-12-12] MEDS: COZAAR PO SCH (08:41)
[2020-12-12] MEDS: PERCOCET TAB 5/325 MG PO PRN ×4 (08:41→23:19)
[2020-12-12] MEDS: COREG TAB 12.5 MG PO SCH ×2 (08:41→20:21)
[2020-12-12] MEDS: LEXAPRO PO SCH (08:42)
[2020-12-12] MEDS: NS 1000 ML 1,000 ML IV SCH ×2 (08:43→16:34)
[2020-12-12] MEDS: BETADINE SOLN TOP SCH (08:44)
[2020-12-12] MEDS ORDERED: POTASSIUM CHLORIDE LIQ 20 MEQ UDC PO PRN (09:16)
[2020-12-12] MEDS ORDERED: POTASSIUM CHL 40 MEQ/NS 0.45% 500 ML IV PRN (09:16)
[2020-12-12] MEDS ORDERED: MICRO K EXTEN CAP 10 MEQ PO PRN (09:16)
[2020-12-12] MEDS ORDERED: KLOR-CON PO PRN (09:16)
[2020-12-12] MEDS ORDERED: POTASSIUM CHL 60 MEQ/NS 0.45% 500 ML IV PRN (09:16)
[2020-12-12] MEDS ORDERED: K-RIDER 10 MEQ/NS 100 ML 10 MEQ/100 ML BAG IV PRN (09:16)
[2020-12-12] MEDS: K-DUR TAB 20 MEQ PO PRN (14:27)
[2020-12-13] MEDS: NS 1000 ML 1,000 ML IV SCH ×4 (01:02→18:22)
[2020-12-13] MEDS: PERCOCET TAB 5/325 MG PO PRN ×5 (03:47→22:22)
[2020-12-13] MEDS: ZOSYN VIAL 3.375 GRAMS 3.375 G in NS 100 ML IV + SPIKE MINIBAG* 100 ML IV SCH ×3 (06:15→22:22)
[2020-12-13 07:00] LABS: BASOPHILS # (AUTO) 0.1 X10^3/uL (0.0-0.1); BASOPHILS % (AUTO) 0.9 % (0.2-1.0); LYMPHOCYTES # (AUTO) 2.5 X10^3/uL (1.3-2.9); MONOCYTES # (AUTO) 0.8 x10^3/uL (0.3-0.8)
[2020-12-13 07:05] LABS: EOSINOPHILS # (AUTO) 0.3 x10^3/uL (0.0-0.2); EOSINOPHILS % (AUTO) 2.5 % (0.9-2.9); HEMATOCRIT 33.5 % (36.0-47.0); HEMOGLOBIN 11.8 g/dL (12.0-16.0); LYMPHOCYTES % (AUTO) 23.8 % (21.0-51.0); MEAN CORPUSCULAR HGB CONC 35.3 g/dL (33.0-35.0); MEAN CORPUSCULAR VOLUME 87.7 fL (80.0-100.0); MEAN PLATELET VOLUME 6.3 fL (7.4-11.0); MONOCYTES % (AUTO) 7.6 % (0.0-13.0); NEUTROPHILS # (AUTO) 6.9 x10^3/uL (2.2-4.8); NEUTROPHILS % (AUTO) 65.2 % (42.0-75.0); PLATELET COUNT 336 X10^3/uL (150.0-450.0); RED BLOOD COUNT 3.82 X10^6/uL (3.5-5.4); RED CELL DISTRIBUTION WIDTH 14.3 % (11.6-16.5); WHITE BLOOD COUNT 10.6 X10^3/uL (3.6-10.0)
[2020-12-13 07:13] LABS: ALANINE AMINOTRANSFERASE 9 Units/L (12-78); ALBUMIN 2.4 g/dL (3.4-5.0); ALKALINE PHOSPHATASE 178 Units/L (46-116); ASPARTATE AMINO TRANSFERASE 14 Units/L (15-37); BLOOD UREA NITROGEN 9 mg/dL (7-18); CALCIUM 8.2 mg/dL (8.5-10.1); CARBON DIOXIDE 15.2 mmol/L (21-32); CHLORIDE 107 mmol/L (98-107); COR CA(FOR HYPOALB) 9.5 mg/dL (8.5-10.1); COR NA(FOR HYPERGLY) 139 mmol/L (136-145); CREATININE 0.54 mg/dL (0.55-1.02); SODIUM 138 mmol/L (136-145); TOTAL PROTEIN 6.4 g/dL (6.4-8.2); VANCOMYCIN,TROUGH 13.9 ug/mL (15-20); eGFR NON BLACK RACES > 60 (>60)
[2020-12-13] MEDS ORDERED: LEXAPRO ONE (07:57)
[2020-12-13] MEDS: COREG TAB 12.5 MG PO SCH ×2 (08:03→20:38)
[2020-12-13] MEDS: VANCOMYCIN IV *PREMIX 1.25 G/250 ML BAG 1.25 G/250 ML PIGGYBACK IV SCH ×3 (08:03→21:00)
[2020-12-13] MEDS: COZAAR PO SCH (08:04)
[2020-12-13] MEDS: K-DUR TAB 20 MEQ PO PRN (08:04)
[2020-12-13] MEDS: INVOKANA PO SCH (08:04)
[2020-12-13] MEDS: LEXAPRO PO SCH (08:04)
[2020-12-13] MEDS: LOVENOX INJ 40 MG SYR SC SCH (09:11)
[2020-12-13] MEDS: VICTOZA SC SCH (09:11)
[2020-12-13] MEDS: BETADINE SOLN TOP SCH (09:12)
[2020-12-14] MEDS: NS 1000 ML 1,000 ML IV SCH ×3 (01:57→14:48)
[2020-12-14] MEDS: PERCOCET TAB 5/325 MG PO PRN ×3 (03:27→16:03)
[2020-12-14] MEDS: ZOSYN VIAL 3.375 GRAMS 3.375 G in NS 100 ML IV + SPIKE MINIBAG* 100 ML IV SCH ×2 (05:00→14:49)
[2020-12-14 06:23] LABS: CREATININE 0.52 mg/dL (0.55-1.02)
[2020-12-14 06:35] LABS: VANCOMYCIN,TROUGH 18.2 ug/mL (15-20)
[2020-12-14] MEDS: VANCOMYCIN IV *PREMIX 1.25 G/250 ML BAG 1.25 G/250 ML PIGGYBACK IV SCH ×2 (07:27→14:49)
[2020-12-14] MEDS ORDERED: HEPARIN SODIUM INJ 5000 UNITS ONE (07:51)
[2020-12-14] MEDS ORDERED: MARCAINE/EPINEPHRINE ONE (07:51)
[2020-12-14] MEDS ORDERED: HEPARIN SODIUM IN D5W 75,000 UNITS/1,500 ML BAG ONE (07:52)
[2020-12-14] MEDS ORDERED: FENTANYL INJ 100 mcg ONE (07:58)
[2020-12-14] MEDS ORDERED: NS 1000 ML 1,000 ML ONE (08:06)
[2020-12-14] MEDS: BETADINE SOLN TOP SCH (08:42)
[2020-12-14] MEDS ORDERED: VERSED ONE (08:54)
[2020-12-14] MEDS ORDERED: XYLOCAINE 2 % (PLAIN) ONE (08:54)
[2020-12-14] MEDS ORDERED: KETALAR ONE (08:54)
[2020-12-14] MEDS ORDERED: DIPRIVAN VIAL ONE (08:54)
[2020-12-14] MEDS ORDERED: EPHEDRINE SULFATE INJ ONE (08:54)
--- NOTE | 2020-12-14 10:50 | OR.IMMED ---
IMMEDIATE POST-OP NOTE Immediate Post-Op Note Pre-Op Diagnosis: Severe stenosis right SFA Post-Op Diagnosis: same, tight stenosis of right distal anterior tibial artery Procedure: aortogram( diagnostic), diagnostic arteriogram right leg, atherectomy and drug coated balloon angioplasty right SFA Description of Procedure: see operative note Surgeon/Warp Bleaching Vat Tender: Aleksandra Findings: As above Specimens Removed: none Estimated Blood Loss: < 25 cc Drains: NONE Complications: none Progress Notes: To PACU then to floor Condition: Stable Final Diagnosis: severe stenosis of the right SFA
[2020-12-14] MEDS ORDERED: LEXAPRO ONE (12:06)
[2020-12-14] MEDS: LEXAPRO PO SCH (12:22)
[2020-12-14] MEDS: COZAAR PO SCH (12:22)
[2020-12-14] MEDS: INVOKANA PO SCH (12:22)
[2020-12-14] MEDS: COREG TAB 12.5 MG PO SCH (12:22)
[2020-12-14] MEDS: LOVENOX INJ 40 MG SYR SC SCH (12:23)
[2020-12-14] MEDS: VICTOZA SC SCH (12:24)
[2020-12-14 16:49] VITALS: BP 142/71
--- NOTE | 2020-12-14 23:18 | DR.OPNOTE ---
OP NOTE Pre-Op Diagnosis: Gangrenous left 3rd toe, [employer] SUPERVISOR left SFA Post-Op Diagnosis: same Procedure: This procedure was carried out on December 10, 2020. This 45-year-old female with a history of coronary artery disease status post cardiac bypass grafting in the past as well as tobacco abuse and presented with gangrenous changes of the left 3rd toe. I was asked to see her in consultation. Patient has had amputation of the left 3rd toe and duplex study shows evidence of significant occlusion of the left superficial femoral artery as well as increased velocity of the right distal superficial femoral artery . The CT angiogram shows a long segment complete total occlusion of the left superficial femoral artery with reconstruction of the popliteal artery. The CTA did not discuss any mention of the right superficial femoral artery. That will be discussed later. Findings on this patient include complete total occlusion of the mid-to distal left superficial femoral artery and left anterior tibial artery with severe stenosis in two locations. The patient was taken to the operating suite and placed in the supine position and given IV sedation. The IV sedation was supervised by myself. Timeout for the procedure obtained. Ultrasonography used to identify the right common femoral artery and the skin overlying it infiltrated with 0.5% Marcaine with epinephrine. Using ultrasonography the right common femoral artery was punctured with a 16 gauge needle and a 0.014 inch guidewire placed without difficulty. Incision made over the guidewire at the skin level and a micro sheath placed over the wire into the common femoral artery. The small wire was exchanged for a 0.035 inch guidewire and the micro sheath exchanged for a 7 Dominican vascular sheath. A 0.035 inch Omni catheter was placed over the guidewire into the aorta and diagnostic aortogram carried out showing normal distal aorta with normal common, external and internal iliac arteries. The Omni catheter was used to guide the guidewire down the left side and the Omni catheter exchanged for a Trailblazer catheter and was parked in the left common femoral artery and sequential arteriograms carried out as diagnostic arteriogram of the left extremity showing long segment complete total occlusion of the mid-to distal l eft superficial femoral artery with runoff via the posterior tibial and peroneal arteries. There were 2 long segment occlusions/ stenosis of the left anterior tibial artery. At this point the patient had been heparinized with 5000 units of heparin intravenously. The 7 Dominican sheath in the right groin exchanged for a 7 Dominican destination sheath which was parked in the left common femoral artery. The 0.035 inch guidewire was exchanged for a 0.18 inch V 18 control wire which was used to get across the complete total occlusion of the left superficial femoral artery. The Trailblazer catheter was exchanged for a 0.018 inch Trailblazer which was used to place the wire down the left anterior tibial artery. The distal occlusion of the left anterior tibial artery was ballooned open with a 2 mm [employer] 100 mm long balloon which was held open for one minute. The proximal stenosis of the left anterior tibial artery was then ballooned open with a 3 mm [employer] angioplasty balloon. The guidewire was then placed in the tibial- peroneal trunk and the wire removed. Through the Trailblazer catheter a spider basket measuring 0.014 inch in diameter was placed in the tibial-peroneal trunk. Over the 0.014 inch wire the Hawk One device was used to perform directional atherectomy of the complete total occlusion of the left superficial femoral artery. Once this was carried out we then ballooned open the superficial femoral artery with a [employer] 6 mm x 200 mm [place] drug-coated balloon which was held open 3 minutes. Repeat arteriogram showed excellent results of the superficial femoral artery as well as the left anterior tibial artery. The wire and long destination sheath was pulled back into the aorta and the wire placed up into the aorta. The destination sheath was exchanged for a 7 Dominican short vascular sheath. Arteriogram carried out of the right femoral artery showing a severe stenosis of the right femoral artery . The short vascular sheath was exchanged for an Angioseal device which was used to close the puncture of the right common femoral artery. Patient did have a small hematoma of the right groin which was held in compression for 7 minutes. Patient was taken back to the recovery room and then to the floor in stable condition with excellent Doppler signal in the left ankle. The severe stenosis of the right superficial femoral artery will be addressed next week. Type of Anesthesia: Local (0.5 % Marcaine with epinephrine and MAC) Findings: As above Specimen/Pathology: none Type of Fluids Used:: Lactated Ringers EBL: minimal Complications:: none Needle/Sponge Count:: correct Disposition/Condition: Pt. tolerated procedure without difficulty. Taken to PACU in stable condition.
--- NOTE | 2020-12-15 07:27 | DR.OPNOTE ---
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 At that time last week she had suggestion of right superficial artery stenosis with the marked increase in velocity of the superficial femoral artery. Arteriography at that time confirmed the right superficial femoral artery stenosis. Patient was taken to the operating suite and placed in the supine position. She was given IV sedation supervised by myself. The entire right leg and the left groin were prepped and draped in sterile fashion. Timeout for the procedure obtained. Ultrasonography used to identify the left common from artery and the skin overlying it infiltrated with 0.5% Marcaine with epinephrine. Ultrasonography used to identify the left common femoral artery and it was used to guide puncture of it with a 16gauge needle and a 0.014 inch wire placed. Micro sheath placed over the wire. Picture was obtained and stored on the SonoSite machine of this. The small wire exchanged for a 0.035 inch Advantage guidewire and the sheath exchanged for a 5 Macedonian vascular sheath. Omni catheter placed over the guidewire into the aorta and aortogram carried out. This was used to direct the Omni catheter and the wire down the right side. The Omni catheter exchanged for a Trailblazer catheter and diagnostic arteriograms carried out of the entire right leg showing severe stenosis of the midportion of the right superficial femoral artery as well as stenosis of the distal artery all the way to the adductor canal. There was also significant stenosis of the distal aspect of the right posterior tibial artery. The patient had been heparinized with 5000 units of heparin. The short sheath in the left groin exchanged for a destination catheter which was parked in the common femoral artery on the right side. The 0.035 inch wire exchange for a 0.018 inch V 18 wire and a 0.018 inch trailblazer catheter and directed a wire down the posterior tibial artery. I could not get the wire to go completely across the distal stenosis. Because she had good runoff via the posterior tibial and peroneal arteries on that side I elected not to proceed with any intervention of this. The V 18 wire was exchanged for a 0.014 inch spider basket wire placed in the popliteal artery. The Hawk One device then placed over the 0.014 inch wire and atherectomy carried out of all the stenosis of the right superficial femoral artery. This was then ballooned open with a 5 mm x 200 mm [employer] [place] drug-coated balloon which was held open for 3 minutes. The balloon removed and repeat arteriography showed excellent result. There appeared to be a small area of leak in the right superficial femoral from the previous needlestick. I ballooned this with a 6 mm x 100 mm [employer] balloon. This did decreased the area of leakage. The destination catheter was pulled back into the aorta and the wire placed into the aorta. The destination sheath exchanged for a short 7 Macedonian vascular sheath and this exchanged for the AngioJet device used to close the left common femoral artery puncture site. Dressings applied. Patient tolerated all this very well. Anesthesia Comment: local/ MAC Findings: Severe stenosis right superficial femoral artery EBL: minimal Complications:: none Needle/Sponge Count:: correct Disposition/Condition: Pt. tolerated procedure without difficulty. Taken to floor in stable condition.
== END 2020-12-14 16:15 | disposition home or self-care (01) | DRG 271 ==
LOC: ER 01:41 → MED/SURG 06:38
PROVIDERS: ADMIT Internal Medicine; ATTEND Obstetrics & Gynecology Obstetrics
DX: I11.0 Hypertensive heart disease with heart failure; I96 Gangrene, not elsewhere classified; I25.10 Atherosclerotic heart disease of native coronary artery without angina pectoris; E11.65 Type 2 diabetes mellitus with hyperglycemia; E11.52 Type 2 diabetes mellitus with diabetic peripheral angiopathy with gangrene; I50.9 Heart failure, unspecified; I77.1 Stricture of artery; I70.298 Other atherosclerosis of native arteries of extremities, other extremity

== ENCOUNTER 2021-02-19 22:05 | Observation (INO) ==
--- NOTE | 2021-02-19 22:50 | DR.CP ---
HPI Time Seen Time Seen by Provider: 02/19/21 22:35 PCP Primary Care Physician: MAURICIO HPI Comment HPI Comment: PATIENT IS 46YR OLD FEMALE IN ER WITH SUDDEN ONSET OF CHEST PAIN TONIGHT WHILE ARGUING WITH FAMILY. 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 PAIN IS PRES SURE PAIN, 6/10 IN PRECAUDIAL AREA RADIATING TO THE BACK. PAIN ASSOCIATED WITH SOB. PATIENT SAID PAIN WAS 10//10 WHEN IT FIRST STARTED. Complaint Chief Complaint Doctor Comments: CHEST PAIN. Chief Complaint:: PT IN ED VIA STRETCHER PER [facility] WITH C/O CHEST PAIN. PT STATES SHE HAS BEEN ARGUING WITH FAMILY TODAY. COVID-19 Coronavirus risk:travel/contact w/high risk person: No Has patient experienced Coronavirus symptoms: No Source History Provided: Patient Mode of Arrival Mode of Arrival: Stretcher Timing Onset of Chief Complaint: 02/19/21 Came on: Suddenly Duration Duration: Since Onset Duration: Hours Location Location of Chest Pain: Left and Chest Chest Pain Radiation Location: Back Context Onset: With heavy exertion Cardiac Risk Factors: Other (CAD/) PE Risk Factors: None History of: None Prehospital Care: None Quality Quality: Pressure like Severity Severity: Moderate Modifying Factors Worsens: Exertion Impoves: Rest Associated Signs and Symptoms Associated Signs and Symptoms: Shortness of Breath Other History Other History: CAD, DM AND HTN. PMH PMH Past Medical History: Yes Past Medical History: Anxiety, Arthritis, CHF, COPD, Coronary Artery Disease, Diabetes, Migraines, GERD, Headaches, Hypertension, Kidney Stones, IN and Sleep Apnea Past Surgical History: Yes Surgical History: , CABG/Valve Surgery, Cholecystectomy and Ortho Surgery Past Surgical History Comment: LBKA BILATERAL LEG BYPASS Family History History of Family Medical Conditions: Yes Family Medical History: Diabetes Mellitus, Cancer, [place], Coronary Artery Disease and Hypertension Social History Does patient currently use any type of tobacco product: Yes Have you used tobacco products in the last 12 months: Yes Type of Tobacco Use: Cigarettes Does any household member use tobacco: No Alcohol Use: None Do you use any recreational Drugs:: No Lives With: Family Lives Where: Home Travel Risk Coronavirus risk:travel/contact w/high risk person: No Has patient experienced Coronavirus symptoms: No Infectious screening In the last 2 months have you had wt loss of >10#?: NO Have you had fever, night sweats or hemotysis?: No Have you traveled outside the country in the last 6 months?: No Isolation: Standard ROS Review of Systems Constitutional: No Symptoms Reported and See HPI Eyes: No Symptoms Reported and See HPI ENTM: No Symptoms Reported and See HPI; negative Nose Discharge and Nose Congestion Respiratoy: See HPI and Short of Breath; negative Moist Cough and Wheezing Cardiovascular: No Symptoms Reported, See HPI and Chest Pain Gastrointestinal/Abdominal: See HPI and Nausea; negative Abdominal Pain, Diarrhea and Vomiting Genitourinary: No Symptoms Reported and See HPI; negative Dysuria, Frequency and Hematuria Neurological: No Symptoms Reported and See HPI; negative Headache, Weakness and Dizziness Musculoskeletal: No Symptoms Reported and See HPI; negative Back Pain and Muscle Pain Integumentary: No Symptoms Reported and See HPI; negative Change in Color, Rash and Juandice Hematologic/Lymphatic: No Symptoms Reported and See HPI; negative Easy Bruising Endocrine: No Symptoms Reported and See HPI; negative Increased Thirst and Increased Urine Psychiatric: No Symptoms Reported and See HPI All Other Systems: Reviewed and Negative PE Vitals Vitals: Temperature 98.4 F Pulse Rate [Left] 93 Pulse Rate 104 Respiratory Rate 15 Blood Pressure [Right Arm] 127/75 Blood Pressure 142/62 O2 Sat by Pulse Oximetry 99 General Limitations: No Limitations General Appearance: Alert and In No Apparent Distress Head Head Exam: Normal Inspection Eyes Eye exam: Normal Appearance and PERRL; negative Scleral Icterus and Conjunctival Injection ENT ENT Exam: Normal Exam, Normal Oropharynx, Normal External Ear Exam and TM's Normal Bilaterally Chest Chest Inspection: Normal Inspection and Symmetric Chest Wall Rise; negative Tenderness Respiratory Respiratory Exam: Normal Lung Sounds Bilat; negative Accessory Muscle Use, Chest Wall Tenderness and Respiratory Distress Respiratory Exam: Bilateral: Clear to Auscultation and Bilateral: Rhonchi and Lower: Rhonchi Cardiovascular Cardiovascular Exam: Regular Rate, Normal Rhythm and Normal Heart Sounds; negative Systolic Murmur and Diastolic Murmur Pulse: Normal Edema: Normal Abdominal Exam Abdominal Exam: Normal Inspection, Normal Bowel Sounds and Soft; negative Tenderness Extremities Extremities Exam: Normal Inspection and Normal Capillary Refill Back Back Exam: Normal Inspection; negative (R) CVA Tenderness and (L) CVA Tenderness Neurologic Neurological Exam: Alert and Oriented X3; negative Motor Sensory Deficit Psychiatric Psychiatric Exam: Normal Affect and Normal Mood Skin Skin Exam: Warm, Dry, Intact and Normal Color MDM Additional Information Additional Information Obtained From: Old Records Differential Diagnosis Differential Diagnosis: Angina, Chest Wall Pain, CHF, Costochondritis, Myocardial Infarction, Pericarditis, Pleuritis, Pneumonia, Pneumothorax and Pulmonary Embolus COURSE Treatment Treatment: SEE ORDERS. ASA 81MG CHEWABLE TAB, 4TABS PO , PLAVIX 300MG PO, HEPARIN DRIP PER PROTOCOL IN ER. Consultation Consultation Comments: CALL SEVERAL HOSPITALS, SEE NURSING NOTE, UNABLE TO TRANFER PATIENT [facility] ARE ON DIVERSION DUE TO COVID INFECTION. THEY DO NOT HAVE BED AVAIBLE TO TAKE PATIENT. DR. WHELAN, CONTINUOUS WELD PIPE MILL SUPERVISOR DR WILL ADMIT PATIENT AND TRANSFER PATIENT OUT WHEN BED OPEN UP. Education/Counseling Education/Counseling: Patient Educated On: Diagnosis and Needs for Follow Up ROR Labs Reviewed Laboratory Results Reviewed?: Yes Result Diagrams: 02/19/21 23:00 02/19/21 23:00 Laboratory: WBC 12.3 X10^3/uL (3.6-10.0) H 02/19/21 23:00 RBC 4.83 X10^6/uL (3.5-5.4) 02/19/21 23:00 Hgb 12.6 g/dL (12.0-16.0) 02/19/21 23:00 Hct 37.3 % (36.0-47.0) 02/19/21 23:00 MCV 77.3 fL (80.0-100.0) L 02/19/21 23:00 MCH 26.1 pg (27.0-34.0) L 02/19/21 23:00 MCHC 33.8 g/dL (33.0-35.0) 02/19/21 23:00 RDW 18.4 % (11.6-16.5) H 02/19/21 23:00 Plt Count 429 X10^3/uL (150.0-450.0) 02/19/21 23:00 MPV 6.8 fL (7.4-11.0) L 02/19/21 23:00 Neut % (Auto) 70.4 % (42.0-75.0) 02/19/21 23:00 Lymph % (Auto) 20.8 % (21.0-51.0) L 02/19/21 23:00 [place] % (Auto) 6.6 % (0.0-13.0) 02/19/21 23:00 Eos % (Auto) 1.4 % (0.9-2.9) 02/19/21 23:00 Baso % (Auto) 0.8 % (0.2-1.0) 02/19/21 23:00 Neut # (Auto) 8.6 x10^3/uL (2.2-4.8) H 02/19/21 23:00 Lymph # (Auto) 2.6 X10^3/uL (1.3-2.9) 02/19/21 23:00 [place] # (Auto) 0.8 x10^3/uL (0.3-0.8) 02/19/21 23:00 Eos # (Auto) 0.2 x10^3/uL (0.0-0.2) 02/19/21 23:00 Baso # (Auto) 0.1 X10^3/uL (0.0-0.1) 02/19/21 23:00 Absolute Nucleated RBC 0.0 /100WBC 02/19/21 23:00 PT 13.7 SECONDS (11.8-14.3) 02/20/21 06:05 INR Target Range - 02/20/21 06:05 INR 1.10 (0.8-1.3) 02/20/21 06:05 APTT 35.6 SECONDS (22.9-36.5) 02/20/21 06:05 PTT Comment - 02/20/21 06:05 Sodium 139 mmol/L (136-145) 02/19/21 23:00 Corrected Sodium 143 mmol/L (136-145) 02/19/21 23:00 Potassium 3.7 mmol/L (3.5-5.1) 02/19/21 23:00 Chloride 101 mmol/L (98-107) 02/19/21 23:00 Carbon Dioxide 27.3 mmol/L (21-32) 02/19/21 23:00 BUN 12 mg/dL (7-18) 02/19/21 23:00 Creatinine 1.06 mg/dL (0.55-1.02) H 02/19/21 23:00 Est GFR (MDRD) Af Amer > 60 (>60) 02/19/21 23:00 Est GFR (MDRD) Non-Af 59 (>60) 02/19/21 23:00 Glucose 252 mg/dL (65-99) H 02/19/21 23:00 Calcium 9.5 mg/dL (8.5-10.1) 02/19/21 23:00 Corrected Calcium 10.5 mg/dL (8.5-10.1) H 02/19/21 23:00 Total Bilirubin 0.30 mg/dL (0.2-1.0) 02/19/21 23:00 AST 16 Units/L (15-37) 02/19/21 23:00 ALT 12 Units/L (12-78) 02/19/21 23:00 Alkaline Phosphatase 217 Units/L (46-116) H 02/19/21 23:00 Creatine Kinase 266 Units/L (26-192) H 02/20/21 02:15 CK-MB (CK-2) 22.1 ng/mL (0-4.0) H* 02/20/21 02:15 CK/CKMB % Calc 8.3 % (<4) 02/20/21 02:15 Troponin I 3.91 ng/mL (0-1.5) H* 02/20/21 02:15 Total Protein 7.1 g/dL (6.4-8.2) 02/19/21 23:00 Albumin 2.8 g/dL (3.4-5.0) L 02/19/21 23:00 Globulin 4.3 g/dL (2.5-4.5) 02/19/21 23:00 Albumin/Globulin Ratio 0.7 Ratio (1.1-2.1) L 02/19/21 23:00 Acetone, Semi-Quant Negative (NEGATIVE) 02/20/21 02:15 SARS CoV-2 RNA Rapid ROCKY Negative (NEGATIVE) 02/20/21 03:50 XRAY XRAY Interpreted by: Radiologist and Self EKG Rate: 113 [place]: Normal Rhythm: ST and PACs Block: None Hypertrophy: LAE ST: Old, Inf, Lat and Infarct Opioid Opioid Risk Tool Age (Jony box if 16-45): No History of Preadolescent Sexual Abuse: No Total: 0 Total Score Risk Category: Low Risk Copyright: [facility] predicting aberrant behaviors Diagnosis Discharge Problem: Non Q wave myocardial infarction Pneumonia Qualifiers: Pneumonia type: due to unspecified organism Laterality: bilateral Lung location: lower lobe of lung Qualified Code(s): J18.9 - Pneumonia, unspecified organism Chest pain Qualifiers: Chest pain type: precordial pain Qualified Code(s): R07.2 - Precordial pain
[2021-02-19 23:17] LABS: BASOPHILS # (AUTO) 0.1 X10^3/uL (0.0-0.1); BASOPHILS % (AUTO) 0.8 % (0.2-1.0); EOSINOPHILS # (AUTO) 0.2 x10^3/uL (0.0-0.2); EOSINOPHILS % (AUTO) 1.4 % (0.9-2.9); HEMATOCRIT 37.3 % (36.0-47.0); HEMOGLOBIN 12.6 g/dL (12.0-16.0); LYMPHOCYTES # (AUTO) 2.6 X10^3/uL (1.3-2.9); LYMPHOCYTES % (AUTO) 20.8 % (21.0-51.0); MEAN CORPUSCULAR HEMOGLOBIN 26.1 pg (27.0-34.0); MEAN CORPUSCULAR HGB CONC 33.8 g/dL (33.0-35.0); MEAN CORPUSCULAR VOLUME 77.3 fL (80.0-100.0); MEAN PLATELET VOLUME 6.8 fL (7.4-11.0); MONOCYTES # (AUTO) 0.8 x10^3/uL (0.3-0.8); MONOCYTES % (AUTO) 6.6 % (0.0-13.0); NEUTROPHILS # (AUTO) 8.6 x10^3/uL (2.2-4.8); NEUTROPHILS % (AUTO) 70.4 % (42.0-75.0); PLATELET COUNT 429 X10^3/uL (150.0-450.0); RED BLOOD COUNT 4.83 X10^6/uL (3.5-5.4); RED CELL DISTRIBUTION WIDTH 18.4 % (11.6-16.5); WHITE BLOOD COUNT 12.3 X10^3/uL (3.6-10.0)
[2021-02-19 23:34] LABS: ALANINE AMINOTRANSFERASE 12 Units/L (12-78); ALBUMIN 2.8 g/dL (3.4-5.0); ALKALINE PHOSPHATASE 217 Units/L (46-116); ASPARTATE AMINO TRANSFERASE 16 Units/L (15-37); BLOOD UREA NITROGEN 12 mg/dL (7-18); CALCIUM 9.5 mg/dL (8.5-10.1); CARBON DIOXIDE 27.3 mmol/L (21-32); CHLORIDE 101 mmol/L (98-107); COR CA(FOR HYPOALB) 10.5 mg/dL (8.5-10.1); COR NA(FOR HYPERGLY) 143 mmol/L (136-145); CREATININE 1.06 mg/dL (0.55-1.02); SODIUM 139 mmol/L (136-145); TOTAL PROTEIN 7.1 g/dL (6.4-8.2); eGFR NON BLACK RACES 59 (>60)
[2021-02-19 23:35] LABS: CKMB % 4.9 % (<4); CREATINE KINASE 51 Units/L (26-192); CREATINE KINASE MB 2.5 ng/mL (0-4.0); TROPONIN I 0.23 ng/mL (0-1.5)
[2021-02-20] MEDS ORDERED: NEURONTIN CAP 300 MG PO ONE (01:27)
[2021-02-20] MEDS ORDERED: NEURONTIN CAP 100 MG ONE (01:29)
[2021-02-20 03:01] LABS: CKMB % 8.3 % (<4); CREATINE KINASE 266 Units/L (26-192)
[2021-02-20 03:04] LABS: CREATINE KINASE MB 22.1 ng/mL (0-4.0)
[2021-02-20 03:05] LABS: SERUM ACETONE NEGATIVE (NEGATIVE); TROPONIN I 3.91 ng/mL (0-1.5)
[2021-02-20] MEDS ORDERED: ASPIRIN 81 MG CHEWTAB PO ONE (05:48)
[2021-02-20] MEDS ORDERED: HEPARIN SODIUM IN D5W 25,000 UNITS/500 ML BAG ONE (05:48)
--- NOTE | 2021-02-20 05:48 | RAD ---
STUDY: FRONTAL VIEW CHESTCOMPARISON: NoneHISTORY: CHEST PAINFINDINGS:[Status post midline sternotomy]No focal consolidation is seen.The heart size is within normal limits.The mediastinum is unremarkable.There is no evidence of pleural effusion or gross pneumothorax.The trachea is midline.IMPRESSION:1. No focal consolidation is seen.2. The heart size is normal.Electronically signed by: Nicholas Layton (Feb 20, 2021 05:46:06)
[2021-02-20] MEDS ORDERED: PLAVIX PO ONE (05:49)
[2021-02-20] MEDS ORDERED: HEPARIN SODIUM IN D5W 25,000 UNITS/500 ML BAG IV PRN (05:49)
[2021-02-20] MEDS ORDERED: PLAVIX ONE (06:26)
[2021-02-20] MEDS ORDERED: HEPARIN SODIUM INJ 5000 UNITS ONE (06:39)
[2021-02-20] MEDS ORDERED: HEPARIN SODIUM INJ 5000 UNITS IVP ONE (06:59)
[2021-02-20] MEDS ORDERED: NS 1000 ML 1,000 ML IV SCH (08:00)
[2021-02-20 08:33] LABS: CKMB % 9.9 % (<4)
[2021-02-20 08:35] LABS: CREATINE KINASE MB 38.7 ng/mL (0-4.0); TROPONIN I 14.84 ng/mL (0-1.5)
[2021-02-20] MEDS ORDERED: ASPIRIN PO SCH (09:00)
[2021-02-20] MEDS ORDERED: ASPIRIN ONE (10:35)
[2021-02-20 13:00] VITALS: BP 112/58
[2021-02-20 13:34] VITALS: BMI 34.7
[2021-02-20 13:49] LABS: CKMB % 8.1 % (<4)
[2021-02-20 13:51] LABS: CREATINE KINASE MB 25.2 ng/mL (0-4.0); TROPONIN I 12.67 ng/mL (0-1.5)
== END 2021-02-20 13:17 | disposition critical access hospital (66) ==
LOC: ER 22:05 → OBS 02-20 07:25 → INTOOBSV 02-20 07:25 → OBS 02-20 07:53
PROVIDERS: ADMIT Internal Medicine; ATTEND Internal Medicine
DX: I21.4 Non-ST elevation (NSTEMI) myocardial infarction; R07.89 Other chest pain; K21.9 Gastro-esophageal reflux disease without esophagitis; R94.31 Abnormal electrocardiogram [ECG] [EKG]; Z20.822 Contact with and (suspected) exposure to COVID-19; J44.9 Chronic obstructive pulmonary disease, unspecified; E11.65 Type 2 diabetes mellitus with hyperglycemia; I25.10 Atherosclerotic heart disease of native coronary artery without angina pectoris

== ENCOUNTER 2021-08-04 09:20 | Inpatient (IN) ==
[2021-08-04] MEDS ORDERED: NS 1,000 ML IV 1,000 ML ONE (09:45)
[2021-08-04] MEDS ORDERED: NS 100 ML IV 100 ML ONE (09:45)
[2021-08-04] MEDS ORDERED: ANCEF VIAL 1 GRAM ONE (09:45)
[2021-08-04 10:09] VITALS: BMI 39.6
[2021-08-04] MEDS ORDERED: BETADINE SOLN ONE (10:22)
[2021-08-04] MEDS ORDERED: POLYMYXIN B SULFATE ONE (10:22)
[2021-08-04] MEDS ORDERED: BETADINE SURGICAL SCRUB ONE (10:22)
[2021-08-04] MEDS ORDERED: NAROPIN 0.75% EPI ONE (11:24)
[2021-08-04] MEDS ORDERED: MARCAINE/EPINEPHRINE ONE (11:24)
[2021-08-04] MEDS ORDERED: FENTANYL VIAL INJ 100 mcg ONE (11:24)
[2021-08-04] MEDS ORDERED: BYFAVO INJ IVP ONE (11:28)
[2021-08-04] MEDS ORDERED: XYLOCAINE 2 % (PLAIN) ONE (12:07)
[2021-08-04] MEDS ORDERED: DIPRIVAN VIAL ONE (12:07)
[2021-08-04] MEDS ORDERED: VERSED ONE (12:07)
[2021-08-04] MEDS ORDERED: KETAMINE HCL ONE (12:07)
[2021-08-04] MEDS ORDERED: ZOFRAN INJ 4 MG VIAL IVP PRN (13:43)
[2021-08-04] MEDS ORDERED: PHENERGAN INJ 25 MG IM PRN (13:43)
[2021-08-04] MEDS ORDERED: REGLAN INJ 10 MG VIAL IVP PRN (13:43)
[2021-08-04] MEDS ORDERED: BARHEMSYS INJ IVP PRN (13:43)
[2021-08-04] MEDS ORDERED: BENADRYL INJ 50 MG VIAL IVP PRN (13:43)
[2021-08-04] MEDS: DILAUDID INJ IVP PRN ×5 (13:44→17:30)
[2021-08-04] MEDS: D5 1/2 NS 1,000 ML 1,000 ML IV SCH (17:45)
[2021-08-04] MEDS: SNACK - Diabetic Appropriate PO SCH (20:10)
[2021-08-04] MEDS: ANCEF VIAL 1 GRAM IVP SCH (21:25)
[2021-08-04] MEDS: NovoLIN R (or HumuLIN R) SUBCUT PRN (22:12)
[2021-08-05] MEDS: DILAUDID INJ IVP PRN ×2 (02:06→06:04)
[2021-08-05] MEDS: D5 1/2 NS 1,000 ML 1,000 ML IV SCH ×5 (03:20→22:01)
[2021-08-05] MEDS: ANCEF VIAL 1 GRAM IVP SCH ×3 (05:43→22:25)
[2021-08-05] MEDS: NovoLIN R (or HumuLIN R) SUBCUT PRN ×4 (05:52→22:28)
[2021-08-05] MEDS ORDERED: BENADRYL INJ 50 MG VIAL IVP PRN (07:57)
[2021-08-05] MEDS: MORPHINE SULFATE INJ 4 MG IVP PRN ×3 (08:08→15:41)
--- NOTE | 2021-08-05 08:35 | DR.PROGNOT ---
Hospital Progress Notes - Progress Note for Day of: Progress Note Date: 08/05/21 - Chief Complaint Chief Complaint: c/o severe incisional pain .. afebrile , stable VSs - Past Medical Family Social History Past Med/Fam/Surg Hx: No changes since H&P Allergies: Allergies atorvastatin [From Lipitor] Allergy (Verified 04/26/20 03:14) meloxicam [From Mobic] Allergy (Verified 04/26/20 03:14) - Review Of Systems ROS: No change since H&P - Vital Signs Vital Signs: Temperature 98.2 F Pulse Rate [Right] 100 Pulse Rate 92 Respiratory Rate 18 Blood Pressure [Right Arm] 126/63 Blood Pressure 119/87 O2 Sat by Pulse Oximetry 97 - Physical Exam Oriented: Normal Eyes: Normal Ear: Normal Nose: Normal Cardiovascular: Normal : Normal GI:Auscultation: Normal GI: Tenderness: Normal Skin: Normal Musculoskeletal: Left (dressing intact . no bleeding .) Mood Description: Calm Speech Pattern: Clear, Appropriate - Laboratory and Diagnostics Labs: Laboratory POC Glucose (mg/dL) 220 mg/dL (65-99) H 08/05/21 05:46 HCG, Quant < 1 mIU/mL (0-6) 08/04/21 10:27 Tissue Pathology To follow 08/04/21 12:50 - Assessment and Plan 1: post op revision of LT BKA . changed pain mrds . PT to get OOB .
[2021-08-05] MEDS: PERCOCET TAB 5/325 MG PO PRN ×3 (10:12→17:59)
[2021-08-05 11:24] LABS: BASOPHILS # (AUTO) 0.1 X10^3/uL (0.0-0.1); BASOPHILS % (AUTO) 0.9 % (0.2-1.0); EOSINOPHILS # (AUTO) 0.2 x10^3/uL (0.0-0.2); EOSINOPHILS % (AUTO) 2.4 % (0.9-2.9); HEMATOCRIT 32.4 % (36.0-47.0); HEMOGLOBIN 11.4 g/dL (12.0-16.0); LYMPHOCYTES % (AUTO) 19.2 % (21.0-51.0); MEAN CORPUSCULAR HEMOGLOBIN 29.1 pg (27.0-34.0); MEAN CORPUSCULAR HGB CONC 35.1 g/dL (33.0-35.0); MEAN CORPUSCULAR VOLUME 82.9 fL (80.0-100.0); MONOCYTES % (AUTO) 9.5 % (0.0-13.0); RED BLOOD COUNT 3.91 X10^6/uL (3.5-5.4); RED CELL DISTRIBUTION WIDTH 15.8 % (11.6-16.5); WHITE BLOOD COUNT 10.3 X10^3/uL (3.6-10.0)
[2021-08-05 11:39] LABS: ALANINE AMINOTRANSFERASE 8 Units/L (12-78); ALBUMIN 2.8 g/dL (3.4-5.0); ALKALINE PHOSPHATASE 169 Units/L (46-116); ASPARTATE AMINO TRANSFERASE 16 Units/L (15-37); BLOOD UREA NITROGEN 26 mg/dL (7-18); CALCIUM 8.4 mg/dL (8.5-10.1); CARBON DIOXIDE 25.9 mmol/L (21-32); CHLORIDE 104 mmol/L (98-107); COR CA(FOR HYPOALB) 9.4 mg/dL (8.5-10.1); COR NA(FOR HYPERGLY) 139 mmol/L (136-145); CREATININE 0.98 mg/dL (0.55-1.02); SODIUM 137 mmol/L (136-145); TOTAL PROTEIN 6.5 g/dL (6.4-8.2); eGFR NON BLACK RACES > 60 (>60)
[2021-08-05] MEDS: LOVENOX INJ 40 MG SYR SC SCH (13:38)
[2021-08-05] MEDS: SNACK - Diabetic Appropriate PO SCH (20:15)
[2021-08-05] MEDS: FLEXERIL TAB 10 MG PO PRN (20:21)
[2021-08-05] MEDS: DEMEROL INJ IM PRN (21:56)
[2021-08-06] MEDS: PERCOCET TAB 5/325 MG PO PRN ×3 (00:12→12:00)
[2021-08-06] MEDS: DEMEROL INJ IM PRN (04:24)
[2021-08-06] MEDS: NovoLIN R (or HumuLIN R) SUBCUT PRN (05:38)
[2021-08-06] MEDS: ANCEF VIAL 1 GRAM IVP SCH (05:38)
[2021-08-06] MEDS: FLEXERIL TAB 10 MG PO PRN (08:37)
[2021-08-06] MEDS: LOVENOX INJ 40 MG SYR SC SCH (08:38)
[2021-08-06 10:35] VITALS: BP 164/79
== END 2021-08-06 12:50 | disposition home or self-care (01) | DRG 581 ==
LOC: MED/SURG 09:24
PROVIDERS: ADMIT Surgery; ATTEND Surgery
DX: F41.8 Other specified anxiety disorders; I73.9 Peripheral vascular disease, unspecified; L08.89 Other specified local infections of the skin and subcutaneous tissue; E11.65 Type 2 diabetes mellitus with hyperglycemia; Z72.0 Tobacco use